=== PATIENT | male | born 1990 | race Caucasian/White ===

== ENCOUNTER 2018-08-10 20:36 | Emergency (ER) | payer SELFPAY ==
[~2018-08-10] VITALS: Ht 177.8 cm; Wt 61.2 kg
[2018-08-10 20:41] VITALS: BP 120/77
[2018-08-10] MEDS ORDERED: KETOROLAC 30 MG/ML VIAL IM ONE (22:25)
[2018-08-10] MEDS ORDERED: ONDANSETRON 4 MG ODT PO ONE (22:25)
[2018-08-10 23:35] VITALS: BP 117/68
== END 2018-08-10 23:35 | disposition home or self-care (01) ==
LOC: MED 20:36
DX: J02.8 Acute pharyngitis due to other specified organisms (principal); B97.89 Other viral agents as the cause of diseases classified elsewhere; R11.2 Nausea with vomiting, unspecified
CPT/HCPCS: 36415; 87081; 87804; 96372; 99283; J1885; Q0162

== ENCOUNTER 2019-01-24 14:39 | Emergency (ER) | payer SELFPAY ==
[~2019-01-24] VITALS: Ht 177.8 cm; Wt 61.2 kg
--- NOTE | 2019-01-24 14:51 | NUR ---
PATIENT AMBULATED TO BED 4.
[2019-01-24 14:56] VITALS: BP 126/72
--- NOTE | 2019-01-24 15:03 | NUR ---
PATIENT PRESENTS TO ED, STATES HIS GIRLFRIEND WAS POSITIVE FOR CHLAMYDIA RECENTLY, FEELS SOME DISCOMFORT TO TESTICLES, NO UTI SYMPTOMS, NO D/C OR SWELLING, WANTS TO BE CHECK FOR STD.DENIES PAIN, VSS; PATIENT POSITIONED FOR COMFORT; ER MD MADE AWARE OF PT STATUS.
--- NOTE | 2019-01-24 15:08 | NUR ---
DR. LUCERO EXAMED PT'S TESTICLES AT BEDSIDE, CHAPERONED BY ME.
[2019-01-24] MEDS ORDERED: cefTRIAXone 250 MG in LIDOCAINE MPF 1% - 5 mL VIAL 0.9 ML IM ONE (15:10)
[2019-01-24] MEDS ORDERED: metroNIDAZOLE 500 MG TAB PO ONE (15:10)
[2019-01-24] MEDS ORDERED: AZITHROMYCIN 250 MG TAB PO ONE (15:10)
[2019-01-24 15:48] LABS: BILIRUBIN,URINE NEGATIVE (NEGATIVE); BLOOD, URINE NEGATIVE (NEGATIVE); COLOR,URINE YELLOW (YELLOW); LEUKOCYTE ESTERASE ,URINE NEGATIVE (NEGATIVE); NITRITE, URINE NEGATIVE (NEGATIVE); UGLUCOSE NEGATIVE (NEGATIVE)
[2019-01-24 15:49] LABS: APPEARANCE,URINE CLEAR (CLEAR)
[2019-01-24 17:09] VITALS: BP 126/72
--- NOTE | 2019-01-24 17:09 | NUR ---
Patient discharged with v/s stable. Written and verbal after care instructions given and explained. Rx of IBUPROFEN, DOXYCYCLINE given. Patient educated on indication of medication including possible reaction and side effects. All questions addressed prior to discharge. ID band removed. Patient advised to follow up with PMD.
[2019-01-26 06:12] LABS: CHLAMYDIA TRACHOMATIS AMP DNA Negative (Negative)
== END 2019-01-24 17:09 | disposition home or self-care (01) ==
LOC: MED 14:39
DX: N50.812 Left testicular pain (principal); Z20.2 Contact with and (suspected) exposure to infections with a predominantly sexual mode of transmission
CPT/HCPCS: 36415; 76870; 81003; 96372; 99284; J0696; J2001; Q0092; 87491

== ENCOUNTER 2019-06-26 19:34 | Emergency (ER) | payer MEDICAID ==
[~2019-06-26] VITALS: Ht 177.8 cm; Wt 61.2 kg
[2019-06-26 19:53] VITALS: BP 125/61
--- NOTE | 2019-06-26 19:55 | NUR ---
TO LOBBY A/W BED AMBULATORY
--- NOTE | 2019-06-26 20:16 | NUR ---
PT AMBULATED TO BED 11
--- NOTE | 2019-06-26 20:44 | NUR ---
Dr. [place] examining patient.
--- NOTE | 2019-06-26 21:00 | NUR ---
28 YEAR OLD MALE COMPLAINS OF PELVIC PAIN 7/10 "PINCHING" PAIN. PATIENT STATES NAUSEA, VOMITTING, AND DIARRHEA X 1 DAY ALONG WITH COLD SWEATS WHEN TRYING TO SLEEP. PATIENT SITE WITHOUT ANY VISIBLE BRUISING OR LUMPS. PATIENT STATES THAT HE WAS ABLE TO URINATE FINE AND NO BACK PAIN. PATIENT IS ALERT AND ORIENTED, BED IN LOWEST POSITION, LOCKED, BED RAIL UPX1.
[2019-06-26] MEDS: KETOROLAC 30 MG/ML VIAL IM ONE (21:30)
[2019-06-26 22:15] VITALS: BP 108/75
== END 2019-06-26 22:15 | disposition home or self-care (01) ==
LOC: MED 19:34
DX: R59.1 Generalized enlarged lymph nodes (principal)
CPT/HCPCS: 81002; 96372; 99283; J1885

== ENCOUNTER 2019-08-15 08:59 | Emergency (ER) | payer MEDICAID ==
[~2019-08-15] VITALS: Ht 179.1 cm; Wt 61.9 kg
[2019-08-15 09:04] VITALS: BP 118/81
--- NOTE | 2019-08-15 09:07 | NUR ---
PT TO BED 2 WITH STEADY GAIT
--- NOTE | 2019-08-15 09:28 | NUR ---
28 Y/O M C/O PAINFUL URINATION X 3 DAYS, INTERMITENT. PT STATES HE HAD UNPROTECTED INTERCOURSE AND HAS CONCERNS OF AN STD. PT DENIES URETHRAL DISCHARGE, BLOOD IN THE URINE, FEVER. PT UA IS CLEAR TODAY. VSS. PT POSITIONED FOR COMFORT.
[2019-08-15] MEDS ORDERED: cefTRIAXone 250 MG in LIDOCAINE MPF 1% 0.9 ML IM ONE (10:00)
[2019-08-15] MEDS ORDERED: AZITHROMYCIN 250 MG TAB PO ONE (10:00)
[2019-08-15] MEDS ORDERED: cefTRIAXone 250 MG VIAL ONE (10:04)
[2019-08-15] MEDS ORDERED: LIDOCAINE MPF 1% 5 ML ONE (10:05)
--- NOTE | 2019-08-15 10:16 | NUR ---
UA SENT TO LAB FOR TESTING.
[2019-08-15 11:47] LABS: APPEARANCE,URINE HAZY (CLEAR); BILIRUBIN,URINE NEGATIVE (NEGATIVE); BLOOD, URINE NEGATIVE (NEGATIVE); COLOR,URINE YELLOW (YELLOW); LEUKOCYTE ESTERASE ,URINE NEGATIVE (NEGATIVE); NITRITE, URINE NEGATIVE (NEGATIVE); UGLUCOSE NEGATIVE (NEGATIVE)
[2019-08-15 12:16] VITALS: BP 118/81
--- NOTE | 2019-08-15 12:17 | NUR ---
Patient discharged with v/s stable. Written and verbal after care instructions given and explained. Patient verbalized understanding. Ambulatory with steady gait. All questions addressed prior to discharge. Advised to follow up with PMD.
[2019-08-17 06:07] LABS: CHLAMYDIA TRACHOMATIS AMP DNA Negative (Negative)
== END 2019-08-15 12:17 | disposition home or self-care (01) ==
LOC: MED 08:59
DX: A64 Unspecified sexually transmitted disease (principal)
CPT/HCPCS: 36415; 81003; 87491; 96372; 99283; J0696; J2001

== ENCOUNTER 2021-09-27 13:17 | Emergency (ER) | payer MEDICAID, OTHER ==
[~2021-09-27] VITALS: Ht 177.8 cm; Wt 62.1 kg
[2021-09-27 13:21] VITALS: BP 136/78
[2021-09-27] MEDS ORDERED: cefTRIAXone 500 MG in LIDOCAINE MPF 1% 1 ML IM ONE (13:55)
--- NOTE | 2021-09-27 14:19 | NUR ---
UA collected, walked to lab and handed to CPT Ebony.
[2021-09-27] MEDS ORDERED: DOXY-690 PO (14:34)
[2021-09-27] MEDS ORDERED: cefTRIAXone 500 MG VIAL ONE (14:36)
[2021-09-27] MEDS ORDERED: LIDOCAINE MPF 1% 5 ML ONE (14:36)
--- NOTE | 2021-09-27 14:40 | NUR ---
31/M BIB SELF WITH C/O PENILE AND TESTICLE PAIN AND URINARY BURNING X1 WEEK. STATES HE HAD UNPROTECTED SEX TWO WEEKS AGO AND IS CONCERNED HE MAY HAVE CONTRACTED AN STD. DENIES N/V/D; SKIN IS PINK/WARM/DRY; AAOX4 WITH EVEN AND STEADY GAIT; LUNGS CLEAR BL; HR EVEN AND REGULAR; PT DENIES ANY FEVER, CP, SOB, OR COUGH AT THIS TIME; PATIENT STATES PAIN OF 0/10 AT THIS TIME; VSS; PATIENT POSITIONED FOR COMFORT; HOB ELEVATED; BEDRAILS UP X2; BED DOWN. ER MD MADE AWARE OF PT STATUS. MEDHX: DENIES ALLERGIES: KRISTINE
--- NOTE | 2021-09-27 15:08 | NUR ---
ATTEMPTED TO DC PATIENT. PT NOT FOUND IN ROOM. CALLED PATIENT, HE STATED HE WILL BE BACK TO SIGN DC PAPERS SHORTLY.
--- NOTE | 2021-09-27 15:30 | NUR ---
PT NEVER RETURNED FOR DC PAPERWORK. RX OF VIBRAMYCIN WAS SENT TO PT PHARMACY.
== END 2021-09-27 15:08 | disposition home or self-care (01) ==
LOC: MED 13:17
DX: R30.0 Dysuria (principal); F12.90 Cannabis use, unspecified, uncomplicated; Z11.3 Encounter for screening for infections with a predominantly sexual mode of transmission; Z79.899 Other long term (current) drug therapy
CPT/HCPCS: 36415; 81002; 96372; 99283; J0696; J2001; 87491